=== PATIENT | female | born 1970 | race American Indian/Alaskan Native ===

== ENCOUNTER → 2017-08-28 | Outpatient (CLI) | payer BC | LOC: SUN.DIA 14:00 | DX: E11.9 Type 2 diabetes mellitus without complications (principal); Z68.26 Body mass index [BMI] 26.0-26.9, adult; Z71.3 Dietary counseling and surveillance | CPT/HCPCS: G0108 ==

== ENCOUNTER → 2017-09-19 | Outpatient (CLI) | payer BC | LOC: SUN.DIA 12:50 | DX: E11.9 Type 2 diabetes mellitus without complications (principal) | CPT/HCPCS: G0108 ==

== ENCOUNTER 2018-09-07 16:37 | Emergency (ER) | payer BC ==
[~2018-09-07] VITALS: Ht 160 cm; Wt 76.8 kg
[2018-09-07 16:50] VITALS: BP 139/99; TEMP 97.6
[2018-09-07 18:19] LABS: BASO % 0.5 % (0.0-2.0); EOS # 0.1 (0.0-0.7); EOS % 1.2 % (0-4.0); GRAN # 4.9 (1.4-6.5); GRAN % 57.9 % (42.2-75.2); HEMOGLOBIN 16.6 g/dl (12.5-16.0); LYMPH # 2.8 (1.2-3.4); LYMPH % 32.9 % (20.0-51.0); MEAN CELL VOLUME 90 fl (80.0-100.0); MEAN CORPUSCULAR HEMOGLOBIN 31 pg (27.0-31.0); MEAN CORPUSCULAR HGB CONC 35 g/dl (33.0-37.0); MEAN PLATELET VOLUME 9.8 fl (7.4-10.4); MONO # 0.6 (0.1-0.6); MONO % 7.3 % (1.7-9.3); PLATELET COUNT 292 K/mm3 (130-400); RED BLOOD COUNT 5.31 M/mm3 (4.10-5.30); REDCELL DISTRIBUTION WIDTH-CV 12.3 % (11.5-14.5)
[2018-09-07 18:32] LABS: ALANINE AMINOTRANSFERASE 65 U/L (9-52); ALBUMIN 5.1 gm/dL (3.5-5.0); ALKALINE PHOSPHATASE 86 U/L (50-136); ANION GAP 15 mmol/L (7-16); AST,SGOT 52 U/L (15-37); BILIRUBIN,TOTAL 0.9 mg/dL (0.0-1.0); BLOOD UREA NITROGEN 15 mg/dL (7-17); CALCIUM 10.7 mg/dL (8.4-10.2); CARBON DIOXIDE 21 mmol/L (22-30); CHLORIDE 106 mmol/L (98-107); CREATININE, serum 0.73 (0.52-1.25); GLUCOSE 137 mg/dL (74-106); LIPASE 121 U/L (23-300); POTASSIUM 4.1 mmol/L (3.4-5.0); SODIUM 142 mmol/L (137-145); TOTAL PROTEIN 8.6 gm/dL (6.4-8.2)
[2018-09-07 18:38] LABS: C-REACTIVE PROTEIN < 0.5 mg/dL (0.0-0.9)
[2018-09-07] MEDS ORDERED: CYMBALTA 60MG60 MG PO (18:39)
[2018-09-07] MEDS ORDERED: ZOCOR 20MG20 MG PO (18:39)
[2018-09-07] MEDS ORDERED: GLUCOPHAGE1000 MG PO (18:40)
[2018-09-07] MEDS ORDERED: FELDENE10 MG PO (18:40)
[2018-09-07] MEDS ORDERED: LITHIUM 30300 MG/CAP PO (18:41)
[2018-09-07] MEDS ORDERED: NEURONTIN800 MG/TAB PO (18:41)
[2018-09-07] MEDS ORDERED: CATAPRES 0.1MG0.1 MG PO (18:41)
[2018-09-07] MEDS ORDERED: WELLBUTRIN XL300 M1 PO (18:42)
[2018-09-07] MEDS ORDERED: KLONOPIN 1MG1 MG PO (18:42)
[2018-09-07] MEDS ORDERED: ASPIRIN 81M81 MG/TA2 PO (18:42)
[2018-09-07] MEDS ORDERED: ONE-A-DAY ESSE1 EACH PO (18:42)
[2018-09-07 19:32] LABS: COLLECTION METHOD CLEAN CATCH
[2018-09-07 19:50] LABS: MUCOUS Present /lpf; PH 6 (5-8); SQUAMOUS EPITHELIAL 0-2 /hpf; URINE APPEARANCE Hazy; URINE BACTERIA None Seen /hpf; URINE BILIRUBIN Negative (NEGATIVE); URINE BLOOD 1+ (NEGATIVE); URINE COLOR Yellow; URINE GLUCOSE Negative (NEGATIVE); URINE KETONE 1+ (NEGATIVE); URINE LEUKOCYTE ESTERASE Trace (NEGATIVE); URINE NITRATE Negative (NEGATIVE); URINE PROTEIN(semi-quant) Negative (NEGATIVE); URINE UROBILINOGEN Negative (NEGATIVE)
[2018-09-07 20:27] VITALS: PULSE 84
[2018-09-07] MEDS ORDERED: CEPHALEXIN500 M1 PO (20:36)
[2018-09-07] MEDS ORDERED: ZOFRAN 4MG T4 MG/TAB PO (20:36)
== END 2018-09-07 20:27 | disposition home or self-care (01) ==
LOC: COL.ER 16:37
PROVIDERS: Physician Assistant
DX: R19.7 Diarrhea, unspecified (principal); N39.0 Urinary tract infection, site not specified; F31.9 Bipolar disorder, unspecified; M79.7 Fibromyalgia; Z79.84 Long term (current) use of oral hypoglycemic drugs; Z79.82 Long term (current) use of aspirin
CPT/HCPCS: A4216; J0696; J2550; J7030

== ENCOUNTER → 2020-04-07 | Outpatient (CLI) | payer BC ==
[~2020-04-07] MED LIST: ASPIRIN 81M81 MG/TA2 PO; CATAPRES 0.1MG0.1 MG PO; CEPHALEXIN500 M1 PO; CYMBALTA 60MG60 MG PO; FELDENE10 MG PO; GLUCOPHAGE1000 MG PO; KLONOPIN 1MG1 MG PO; LITHIUM 30300 MG/CAP PO; NEURONTIN800 MG/TAB PO; ONE-A-DAY ESSE1 EACH PO; WELLBUTRIN XL300 M1 PO; ZOCOR 20MG20 MG PO; ZOFRAN 4MG T4 MG/TAB PO
== END ==
LOC: COL.RAD 03-24 12:00
DX: E05.90 Thyrotoxicosis, unspecified without thyrotoxic crisis or storm (principal)

== ENCOUNTER 2021-06-30 12:45 | Emergency (ER) | payer BC ==
[~2021-06-30] VITALS: Ht 160 cm; Wt 70.0 kg
[2021-06-30 13:05] VITALS: TEMP 97.8
[2021-06-30 13:55] LABS: BASO % 0.6 % (0.0-2.0); EOS # 0.1 K/mm3 (0.0-0.7); EOS % 1.6 % (0.0-4.0); GRAN # 3.3 K/mm3 (1.4-6.5); GRAN % 48.5 % (42.2-75.2); HEMATOCRIT 48.4 % (37.0-47.0); HEMOGLOBIN 17.1 g/dl (12.5-16.0); LYMPH # 2.9 K/mm3 (1.2-3.4); LYMPH % 42.3 % (20.0-51.0); MEAN CELL VOLUME 90 fl (80.0-100.0); MEAN CORPUSCULAR HEMOGLOBIN 32 pg (27-31); MEAN CORPUSCULAR HGB CONC 35 g/dl (33.0-37.0); MEAN PLATELET VOLUME 11.3 fl (7.4-10.4); MONO # 0.5 K/mm3 (0.1-0.6); PLATELET COUNT 211 K/mm3 (130-400); RED BLOOD COUNT 5.39 M/mm3 (4.10-5.30)
[2021-06-30 14:16] LABS: ALBUMIN 4.3 gm/dL (3.5-5.0); BILIRUBIN,TOTAL 0.9 mg/dL (0.2-1.2); C-REACTIVE PROTEIN 0.15 mg/dL (0.00-0.50); CALCIUM 9.4 mg/dL (8.4-10.2); CREATININE, serum 0.94 mg/dL (0.57-1.11); POTASSIUM 4.3 mmol/L (3.5-4.5); TOTAL PROTEIN 7.2 gm/dL (6.2-8.1)
[2021-06-30] MEDS ORDERED: ZOFRAN ODT4 MG PO (15:14)
[2021-06-30 16:29] LABS: COLLECTION METHOD CLEAN CATCH
[2021-06-30 16:37] LABS: MUCOUS Present (NOT PRESENT); PH 5 (5-8); URINE APPEARANCE Hazy (CLEAR/HAZY); URINE BACTERIA None Seen /hpf (NONE SEEN); URINE BILIRUBIN Negative (NEGATIVE); URINE BLOOD 1+ (NEGATIVE); URINE COLOR Yellow (YELLOW); URINE GLUCOSE Negative (NEGATIVE); URINE KETONE 1+ (NEGATIVE); URINE LEUKOCYTE ESTERASE 2+ (NEGATIVE); URINE NITRATE Negative (NEGATIVE); URINE PROTEIN(semi-quant) 1+ (NEGATIVE); URINE UROBILINOGEN Negative (NEGATIVE)
[2021-06-30] MEDS ORDERED: MACROBID 1100 MG/CAP PO (16:39)
[2021-06-30 17:05] VITALS: BP 121/91; PULSE 80
== END 2021-06-30 17:05 | disposition home or self-care (01) ==
LOC: COL.ER 12:45
PROVIDERS: Physician Assistant
DX: N30.00 Acute cystitis without hematuria (principal); E86.0 Dehydration; E11.9 Type 2 diabetes mellitus without complications; Z79.84 Long term (current) use of oral hypoglycemic drugs
CPT/HCPCS: J2405; J7030